=== PATIENT | male | born 1985 ===

== ENCOUNTER → 2016-05-08 | Outpatient (REF) ==
[2016-05-08 23:57] LABS: HEPATITIS B SURFACE AB-QL Positive (())
== END ==
LOC: COL.EMP 10:32
DX: Z02.1 Encounter for pre-employment examination (principal)

== ENCOUNTER → 2016-08-22 | Outpatient (REF) | LOC: WSOH 10:42 | DX: Z02.89 Encounter for other administrative examinations (principal) ==

== ENCOUNTER → 2016-10-09 | Outpatient (REF) | LOC: WSOH 09:00 | DX: Z02.89 Encounter for other administrative examinations (principal) ==